=== PATIENT | female | born 1995 | race Caucasian/White ===

== ENCOUNTER → 2024-02-19 11:06 | Outpatient (REF) | payer OTHER, SELFPAY ==
[2024-02-21 20:07] LABS: Quantiferon TB Gold Plus Negative (Negative)
== END ==
LOC: REG 11:06
PROVIDERS: ATTENDING PHYSICIAN Nurse Practitioner Family
DX: Z23 Encounter for immunization (principal)
CPT/HCPCS: 36415; 86480